=== PATIENT | male | born 1980 | race Two or more races ===

== ENCOUNTER 2024-10-06 18:06 | Emergency (ER) | payer MEDICAID, OTHER ==
[~2024-10-06] VITALS: Ht 167.6 cm; Wt 103.9 kg
[2024-10-06 19:12] LABS: Urine Protein, UAD 1+ (Negative)
[2024-10-06 19:22] LABS: Potassium 4.2 mmol/L (3.5-5.1); Sodium 144 mmol/L (136-145)
[2024-10-06 19:23] LABS: Anion Gap 12 (5-15); Calcium 10.4 mg/dL (8.7-10.4); Carbon Dioxide 23 mmol/L (20-31)
[2024-10-06 19:27] LABS: Chloride 109 mmol/L (98-107)
--- NOTE | 2024-10-06 19:27 | ED.PDOC ---
History of Present Illness HPI Comments Patient is a 43-year-old male with no significant past medical history presented to the ED with a chief complaint of right flank and right lower quadrant pain that started 1 hour ago. Patient reported sudden onset of pain associated with nausea and 3 episodes of vomiting. He reports that he feels like urinating but is not able to pass urine. Pain is severe, constant with intermittent episodes of severe sharp stabbing pain localized to the right flank and the right lower q uadrant. Patient denied any diarrhea, fever, chills in the last few weeks. Chief Complaint: Flank Pain Time Seen by MD: 18:13 Primary Care Provider: UNKNOWN Allergies: Coded Allergies: NO KNOWN ALLERGIES (Unverified , 10/06/24) Information Source: Patient Mode of Arrival: Ambulatory Severity: Moderate, Severe Timing: Minutes Duration: Since onset Past Medical History PAST MEDICAL HISTORY: Denies Surgical History: Denies all surgeries Family History Family History: Reviewed,noncontributory to illness, No family hx of Cancer, No family hx of DM, No family hx of Heart nanette, No family hx of HTN, No family hx ofKidney nanette, No family hx of Liver nanette, No family hx of Lung nanette, No family hx of Stroke Social History Smoker: Non-Smoker Alcohol: Denies ETOH Use Drugs: Denies Drug Use Constitutional: denies: chills, diaphoresis, fatigue, fever, malaise, sweats, weakness, others EENTM: denies: blurred vision, double vision, ear bleeding, ear discharge, ear drainage, ear pain, ear ringing, eye pain, eye redness, hearing loss, mouth pain, mouth swelling, nasal discharge, nose bleeding, nose congestion, nose pain, photophobia, tearing, throat pain, throat swelling, voice changes, others Respiratory: denies: cough, hemoptysis, orthopnea, SOB at rest, shortness of breath, SOB with excertion, stridor, wheezing, others Cardiovascular: denies: chest pain, dizzy spells, diaphoresis, Dyspnea on exertion, edema, irregular heart beat, left arm pain, lightheadedness, palpitations, PND, syncope, others Gastrointestinal: reports: nausea, vomiting Genitourinary: reports: flank pain Neurological: denies: dizziness, fainting, headache, left sided numbness, left sided weakness, numbness, paresthesia, pre-existing deficit, right sided numbness, right sided weakness, seizure, speech problems, tingling, tremors, w eakness, others Musculoskeletal: denies: back pain, gout, joint pain, joint swelling, muscle pain, muscle stiffness, neck pain, others Integumetry: denies: bruises, change in color, change in hair/nails, dryness, laceration, lesions, lumps, rash, wounds, others Allergic/Immunocompromised: denies: Difficulty Healing, Frequent Infections, Hives, Itching, others Hematologic/Lymphatic: denies: anemia, blood clots, easy bleeding, easy bruising, swollen glands, others Endocrine: denies: excessive hunger, excessive sweating, excessive thirst, excessive urination, flushing, intolerance to cold, intolerance to heat, unexplained weight gain, unexplained weight loss, others Psychiatric: denies: anxiety, bipolar disorder, depression, hopeless, panic disorder, schizophrenia, sleepless, suicidal, others Physical Exam General Appearance: Moderate Distress, Severe Distress HEENT: Normal ENT Inspection, Pharynx Normal, TMs Normal Neck: Full Range of Motion, Non-Tender, Normal, Normal Inspection Respiratory: Chest Non-Tender, Lungs Clear, No Accessory Muscle Use, No Respiratory Distress, Normal Breath Sounds Cardiovascular: No Edema, No JVD, No Murmur, No Gallop, Normal Peripheral Pulses, Regular Rate/Rhythm Breast Exam: Deferred Gastrointestinal: No Organomegaly, Normal Bowel Sounds, RLQ, Tenderness Genitalia: Deferred Pelvic: Deferred Rectal: Deferred Extremities: No calf tenderness, Normal capillary refill, Normal inspection, Normal range of motion, Non-tender, No pedal edema Neurologic: Alert, roaster operator II-XII nml as Tested, No Motor Deficits, Normal Affect, Normal Mood, No Sensory Deficits Cerebellar Function: Normal Reflexes: Normal Skin: Dry, Normal Color, Warm Peripheral Pulses: 2+ carotid (R), 2+ carotid (L), 2+ femoral (R), 2+ femoral (L), 2+ dorsalis pedis (R), 2+ dorsalis pedis (L), 2+ Radial (R), 2+ Radial (L) Lymphatic: No Adenopathy Was a procedure done? Was a procedure done?: No Differential Dx Considerations may include: Ureteric stone, nephrolithiasis, appendicitis, cholecystitis, acute cystitis X-Ray, Labs, Meds, VS Vital Signs Date Time Temp Pulse Resp B/P (MAP) Pulse Ox O2 Delivery O2 Flow Rate FiO2 10/06/24 21:40 65 14 96 Room Air* 0 21 10/06/24 21:03 69 22 161/92 10/06/24 20:00 71 16 158/84 10/06/24 19:30 65 14 156/84 (108) 96 10/06/24 18:37 98.0 66 17 155/102 (119) 97 98.0 Lab Test 10/06/24 19:02 10/06/24 19:00 Range/Units Urine Color Yellow Yellow Urine Clarity Clear Clear Urine pH 5.0 5.0-9.0 Urine Specific Industry 1.026 1.001-1.035 Urine Protein 1+ H Negative Urine Ketones Negative Negative Urine Blood 1+ H Negative /uL Urine Nitrite Negative Negative Urine Bilirubin Negative Negative Urine Urobilinogen Normal Negative mg/dL Urine Leukocyte Esterase Negative Negative /uL Urine RBC 1 0 - 3 /hpf Urine Microscopic WBC < 1 0-3 /HPF Urine Squamous Epithelial Cells Few <5 /hpf Urine Bacteria None seen None Seen /hpf Urine Mucus Few None Seen Urine Glucose Normal Normal mg/dL White Blood Count 13.0 H 4.4-10.8 10^3/uL Red Blood Count 5.64 4.5-5.90 10^6/uL Hemoglobin 16.3 13.5-17.5 g/dL Hematocrit 47.9 41.0-53.0 % Mean Corpuscular Volume 84.8 80.0-100.0 fL Mean Corpuscular Hemoglobin 28.9 28.0-32.0 pg Mean Corpuscular Hemoglobin Concent 34.1 32.0-36.0 g/dL Red Cell Distribution Width 13.5 11.8-14.3 % Platelet Count 213 140-450 10^3/uL Mean Platelet Volume 10.1 6.9-10.8 fL Neutrophils (%) (Auto) 77.7 37.0-80.0 % Lymphocytes (%) (Auto) 16.7 10.0-50.0 % Monocytes (%) (Auto) 4.9 0.0-12.0 % Eosinophils (%) (Auto) 0.4 0.0-7.0 % Basophils (%) (Auto) 0.3 0.0-2.0 % Neutrophils # (Auto) 10.1 H 1.6-8.6 10 ^3/uL Lymphocytes # (Auto) 2.2 0.4-5.4 10 ^3/uL Monocytes # (Auto) 0.6 0-1.3 10 ^3/uL Eosinophils # (Auto) 0.1 0-0.8 10 ^3/uL Basophils # (Auto) 0 0-0.2 10 ^3/uL Nucleated Red Blood Cells 0.0 % Sodium Level 144 136-145 mmol/L Potassium Level 4.2 3.5-5.1 mmol/L Chloride Level 109 H 98-107 mmol/L Carbon Dioxide Level 23 20-31 mmol/L Anion Gap 12 5-15 Blood Urea Nitrogen 13 9-23 mg/dL Creatinine 1.23 0.700-1.30 mg/dL Glomerular Filtration Rate Calc 76 >90 mL/min BUN/Creatinine Ratio 10.6 10.0-20.0 Serum Glucose 162 H 74-106 mg/dL Calcium Level 10.4 8.7-10.4 mg/dL Current Medications Medications (Trade) Dose Ordered Sig/Mikey Route Start Time Stop Time Status Last Admin Ondansetron HCl (Zofran) 4 mg ONCE ONCE IV 10/06/24 18:45 10/06/24 18:46 DC 10/06/24 20:00 Morphine Sulfate 4 mg ONCE ONCE IV 10/06/24 18:45 10/06/24 18:46 DC 10/06/24 20:00 Patient 43-year-old male with no significant past medical history came into the ER with a chief complaint of right flank and right lower quadrant pain for 1 hour associated with a [address] abdomen pelvis without contrast showed 1 mm UVJ stone on the right side, mild right hydroureteronephrosis, cholelithiasis, hepatomegaly and hepatic steatosis following which patient was given morphine for pain controlled and reported improvement in his pain. One dose of tamsulosin 0.4 mg was given . Patient was explained about his diagnosis and prognosis. Patient reports to be feeling better and pain has improved significantly. Advised lifestyle modification with low calorie, low fat and low processed foods given his hepatic steatosis, advised to drink plenty of water and avoids carbonated drinks. Patient discharged in stable condition to home Time of 1ST Reevaluation: 09:06 Reevaluation 1ST: Improved Time of 2ND Reevaluation: 21:55 Reevaluation 2ND: Improved Patient Education/Counseling: Diagnosis, Treatment Family Education/Counseling: Diagnosis, Treatment Comments i interviewed and examined the pt with the resident physician, reviewed the treatment plan and agree with the case management SEPSIS Sepsis Screen Date sepsis recognized/suspect: Oct 06, 2024 Time Sepsis recognized/suspect: 1805 Recent Procedure: No On Antibiotic Therapy: No Respiratory Rate >20: No Heart Rate >90: No Temp<36 C (96.8 F) or >38.3 C: No SBP <90 or MAP <65 mmHG: No New Acute Mental Status Change: No Is the patient on CPAP, BIPAP,: No Physician Orders Ct Ab Pel Wo Con-No Oral Or Iv (10/06/24 18:39) Heplock Iv (10/06/24 18:39) Ketorolac Injection (Toradol Injection) (10/06/24 21:30) Tamsulosin Hydrochloride (Flomax) (10/06/24 21:30) Vital Signs Date Time Temp Pulse Resp B/P (MAP) Pulse Ox O2 Delivery O2 Flow Rate FiO2 10/06/24 21:40 65 14 96 Room Air* 0 21 10/06/24 21:03 69 22 161/92 10/06/24 20:00 71 16 158/84 10/06/24 19:30 65 14 156/84 (108) 96 10/06/24 18:37 98.0 66 17 155/102 (119) 97 98.0 Laboratory Tests Test 10/06/24 19:00 White Blood Count 13.0 10^3/uL (4.4-10.8) H Medications Medications Dose Ordered Sig/Mikey Route Start Time Stop Time Status Last Admin Dose Admin Morphine Sulfate 4 mg ONCE ONCE IV 10/06/24 18:45 10/06/24 18:46 DC 10/06/24 20:00 Ondansetron HCl 4 mg ONCE ONCE IV 10/06/24 18:45 10/06/24 18:46 DC 10/06/24 20:00 Departure 1 Departure Time of Disposition: 22:00 Impression: Primary Impression: Ureteric stone Additional Impressions: Cholelithiases Hepatic steatosis Hepatomegaly Hydronephrosis due to obstruction of ureter Disposition: 01 HOME / SELF CARE / HOMELESS Condition: Stable Critical Care Note Critical Care Time?: No Stability Stability form required: No Heart Score Heart Score: Heart Score Response (Comments) Value History N/A 0 EKG N/A 0 Age N/A 0 Risk Factors N/A 0 Troponin N/A 0 Total 0 KHARI NARVAEZ RESIDENT Oct 06, 2024 19:27 FINESSE MARIN MD Oct 06, 2024 20:17
[2024-10-06 19:28] LABS: BUN/Creatinine Ratio 10.6 (10.0-20.0); Blood Urea Nitrogen 13 mg/dL (9-23)
[2024-10-06 19:31] LABS: Glucose 162 mg/dL (74-106)
[2024-10-06] MEDS: ONDANSETRON HCL 4 MG/2 ML VIAL IV ONE (20:00)
[2024-10-06] MEDS: MORPHINE SULFATE 4 MG/ML SYR/VIAL IV ONE (20:00)
--- NOTE | 2024-10-06 21:02 | DVH ---
CLINICAL HISTORY: right LLQ, flank pain TECHNIQUE: CT of the abdomen and pelvis was performed without intravenous contrast. This exam was per formed according to our departmental dose optimization program. Up-to-date CT equipment and radiation dose reduction techniques are utilized as appropriate. CTDI: 20.52 DLP: 1243.13 WID: COMPARISON: None FINDINGS: Lower Thorax: Unremarkable. Liver and Biliary system: There is hepatomegaly with the right lobe of the liver measuring 20 cm cran iocaudal. There is moderate diffuse hepatic steatosis. No definite hepatic lesion. Cholelithiasis in a normal caliber gallbladder. There is no biliary ductal dilatation. Spleen: Mild splenomegaly. Adrenal Glands and Kidneys: Normal adrenal glands. There is a tiny, 1 mm calculus in the right UVJ ca using mild right hydroureteronephrosis. No left hydronephrosis or nephrolithiasis. Pancreas and Retroperitoneum: Unremarkable. Aorta and Major Vessels: Unremarkable. Bowel, Mesentery and Peritoneal space: Normal caliber small and large bowel. Normal appendix. No free air or fluid collection. Pelvis: Unremarkable. Abdominal wall and Osseous Structures: Tiny sclerotic foci in the proximal femurs and pelvis, likely bone islands. Mild lower thoracic and lumbar spondylosis. No destructive osseous lesion. IMPRESSION: Tiny, 1 mm calculus in the right UVJ causing mild right hydroureteronephrosis. Hepatosplenomegaly with moderate hepatic steatosis. Cholelithiasis.
[2024-10-06 21:30] VITALS: BP 122/58; TEMP 98
[2024-10-06 21:31] LABS: Hematocrit 47.9 % (41.0-53.0); Hemoglobin 16.3 g/dL (13.5-17.5); Mean Corpuscular Hemoglobin 28.9 pg (28.0-32.0); Mean Corpuscular Volume 84.8 fL (80.0-100.0); Nucleated Red Blood Cells % 0.0 %
[2024-10-06 21:40] VITALS: PULSE 65; RESP 14; O2SAT 96
[2024-10-06] MEDS: KETOROLAC TROMETH 30 MG/ML 1ML VIAL IV ONE (21:57)
[2024-10-06] MEDS: TAMSULOSIN HYDROCHLORIDE 0.4 MG CAP PO ONE (22:00)
== END 2024-10-06 22:16 | disposition home or self-care (01) ==
LOC: ER 18:06
DX: N13.2 Hydronephrosis with renal and ureteral calculous obstruction (principal); K80.20 Calculus of gallbladder without cholecystitis without obstruction; R16.0 Hepatomegaly, not elsewhere classified
CPT/HCPCS: 36415; 74176; 80048; 81001; 85025; 96374; 96375; 99285; J2270; J2405